=== PATIENT | female | born 1990 | race Two or more races ===

== ENCOUNTER 2020-12-20 20:22 | Emergency (ER) | payer OTHER ==
[~2020-12-20] VITALS: Ht 165.1 cm; Wt 59.9 kg
--- NOTE | 2020-12-20 20:35 | NUR ---
SHARI. L FOOT PAIN AND SWELLING S/P BOX 13LB FELL ON HER FOOT. PT A/OX4. W/C BOUND. ELEVATED FOOT AND APPLIED ICE PRN
--- NOTE | 2020-12-20 20:55 | NUR ---
ACCOUNT REVIEW SPECIALIST AT PT'S BEDSIDE
[2020-12-20] MEDS ORDERED: HYDROCODONE/APAP 5/325MG TABLET ONE (20:56)
[2020-12-20] MEDS ORDERED: HYDROCODONE/APAP 5/325MG TABLET PO ONE (21:00)
[2020-12-20] MEDS ORDERED: IBUP-1955 PO (21:52)
--- NOTE | 2020-12-20 22:11 | NUR ---
Patient discharged to home in stable condition. RX Written and verbal after care instructions given. Patient verbalizes understanding of instruction. PT DC VIA W/C. SOFT BOOT TO L FOOT.
[2020-12-20 22:12] VITALS: BP 119/75
== END 2020-12-20 22:13 | disposition home or self-care (01) ==
LOC: ER 20:29
DX: S90.32XA Contusion of left foot, initial encounter (principal); S90.112A Contusion of left great toe without damage to nail, initial encounter; S90.415A Abrasion, left lesser toe(s), initial encounter; W20.8XXA Other cause of strike by thrown, projected or falling object, initial encounter; Y93.89 Activity, other specified; Y92.89 Other specified places as the place of occurrence of the external cause; Y99.8 Other external cause status
CPT/HCPCS: 73630-TC

== ENCOUNTER 2022-08-18 12:51 | Emergency (ER) | payer OTHER ==
[~2022-08-18] VITALS: Ht 160 cm; Wt 74.8 kg
[~2022-08-18 12:51] MED LIST: IBUP-1955 PO
[2022-08-18] MEDS ORDERED: ACETAMINOPHEN ES 500 MG TABLET PO ONE (13:30)
[2022-08-18] MEDS ORDERED: ACETAMINOPHEN ES 500 MG TABLET ONE (13:32)
--- NOTE | 2022-08-18 13:34 | NUR ---
COMMERCIAL HVAC TECHNICIAN AT BEDSIDE
[2022-08-18] MEDS ORDERED: ACET-73 PO (14:47)
--- NOTE | 2022-08-18 14:55 | NUR ---
Patient discharged to home in stable condition. Written and verbal after care instructions given. Patient verbalizes understanding of instruction.
[2022-08-18 14:57] VITALS: BP 121/77; TEMP 98.4
== END 2022-08-18 14:58 | disposition home or self-care (01) ==
LOC: ER 12:55
DX: O26.893 Other specified pregnancy related conditions, third trimester (principal); R10.30 Lower abdominal pain, unspecified; Z79.1 Long term (current) use of non-steroidal anti-inflammatories (NSAID); Z3A.32 32 weeks gestation of pregnancy
CPT/HCPCS: 76805-TC